=== PATIENT | male | born 1975 | race Two or more races ===

== ENCOUNTER → 2024-12-27 | Outpatient (CLI) | payer BC, SELFPAY ==
--- NOTE | 2024-12-27 13:52 | XR_ITS ---
EXAMINATION: Cervical spine, 5 views Technique: Cervical spine AP, AP odontoid, lateral, bilateral obliques, 5 views Exam date and time: December 27, 2024 1557 hours INDICATIONS: Neck pain beginning 4 months ago radiating down the right arm FINDINGS: Adequate alignment cervical FINDINGS: Minimal disc narrowing C4-C5 Intact odontoid No cervical fracture Mild bilateral neural foraminal stenosis C3-C4 IMPRESSION: Early degenerative disc disease C4-C5
== END | disposition home or self-care (01) ==
PROVIDERS: PCP Nurse Practitioner Family; Referring Provider Nurse Practitioner Family; Visit Provider Nurse Practitioner Family
DX: M50.321 Other cervical disc degeneration at C4-C5 level (principal)
CPT/HCPCS: 72050